=== PATIENT | female | born 1990 | race Caucasian/White ===

== ENCOUNTER 2016-11-07 16:11 | Inpatient (IN) | payer MEDICAID ==
[~2016-11-07] VITALS: Ht 175.4 cm; Wt 100.9 kg
[~2016-11-07 16:11] MED LIST: LORTAB 5/500 501 TAB PO; NO HOME MEDICATIONS; PRENATAL1 TA1 PO; ZITHROMAX Z PA250 MG PO
[2016-11-26] VITALS (18 sets, daily range): BP systolic 106–141; BP diastolic 54–106; PULSE 56–105; TEMP 97–97.8
[2016-11-26 10:31] LABS: BASO % 0.3 % (0.0-2.0); EOS # 0.1 (0.0-0.7); EOS % 0.7 % (0-4.0); GRAN # 9.1 (1.4-6.5); GRAN % 77.2 % (42.2-75.2); HEMOGLOBIN 12.3 g/dl (12.5-16.0); LYMPH # 1.9 (1.2-3.4); LYMPH % 16.5 % (20.0-51.0); MEAN CELL VOLUME 99 fl (80.0-100.0); MEAN CORPUSCULAR HEMOGLOBIN 34 pg (27.0-31.0); MEAN CORPUSCULAR HGB CONC 34 g/dl (33.0-37.0); MONO # 0.6 (0.1-0.6); MONO % 4.8 % (1.7-9.3); PLATELET COUNT 158 K/mm3 (130-400); RED BLOOD COUNT 3.65 M/mm3 (4.10-5.30); REDCELL DISTRIBUTION WIDTH-CV 13.5 % (11.5-14.5); WHITE BLOOD COUNT 11.8 K/mm3 (4.8-10.8)
[2016-11-27] VITALS: BP 127/61; PULSE 78; TEMP 97.9
[2016-11-27 07:20] VITALS: BP 121/66; PULSE 81; TEMP 98.5
[2016-11-27 07:55] LABS: HEMATOCRIT 30.4 % (37.0-47.0)
[2016-11-27] MEDS ORDERED: IBU600 MG PO (09:34)
[2016-11-27] MEDS ORDERED: PERCOCET 325 MG1 TA2 PO (09:34)
== END 2016-11-27 14:05 | disposition home or self-care (01) | DRG 766 ==
LOC: LDR 11-26 08:55 → OB 11-26 09:10 → EDSTATUS 12-24 08:45 → LDRO 12-24 16:11
PROVIDERS: Obstetrics & Gynecology
PROC: 10D00Z1 Extraction of Products of Conception, Low, Open Approach (ICD-10-PCS; principal; 2016-11-26)
DX: O34.211 Maternal care for low transverse scar from previous cesarean delivery (principal); N85.8 Other specified noninflammatory disorders of uterus; O99.334 Smoking (tobacco) complicating childbirth; F17.210 Nicotine dependence, cigarettes, uncomplicated; Z3A.39 39 weeks gestation of pregnancy; O99.02 Anemia complicating childbirth; D64.9 Anemia, unspecified; Z37.0 Single live birth
CPT/HCPCS: J0690; J1885; J2270; J2370; J2405; J2590; J2765; J7120